=== PATIENT | female | born 1930 | race Caucasian/White ===

== ENCOUNTER → 2019-06-28 | Outpatient (REF) ==
--- NOTE | 2019-06-29 22:25 | NOCOX ---
DATE OF STUDY: 06/29/2019 OVERNIGHT OXIMETRY INTERPRETATION: Recording oximetry was done on room air. A total of 6 hours and 41 minutes of data was reviewed. Mean oxygen saturation for the study was 94% with a minimum recorded value of 70%. She spent 4.6% of the night with saturations less than or equal to 88%. The longest sustained time at that level was 1 minute and 44 seconds. There were significant fluctuations in the SpO2 waveform suggestive of sleep disordered breathing. IMPRESSION: 1. Acceptable nocturnal oxygenation. While greater than 5 minutes was spent total less than 88%, longest sustained time was 1 minute and 44 seconds. 2. Fluctuations in the SpO2 waveform suggestive of sleep disordered breathing. Clinical correlation will be necessary.
== END ==
LOC: SKLAB5 12:50
PROVIDERS: ATTEND Internal Medicine
DX: Z79.899 Other long term (current) drug therapy (principal)

== ENCOUNTER → 2019-07-06 | Outpatient (REF) | payer MEDICARE, OTHER, BC ==
[2019-07-06 10:33] LABS: HEMOGLOBIN 12.7 g/dl (12.0-15.5); MEAN CORPUSCULAR HEMOGLOBIN 29.1 pg (27.0-33.0); MEAN CORPUSCULAR HGB CONC 31.8 g/dl (32.0-36.5); MEAN CORPUSCULAR VOLUME 91.7 fl (80.0-96.0); PLATELET COUNT, AUTOMATED 241 10^3/uL (150-450); RED BLOOD COUNT 4.36 10^6/uL (4.00-5.40); WHITE BLOOD COUNT 5.7 10^3/uL (4.0-10.0)
[2019-07-06 10:44] LABS: INR 1.1; PROTHROMBIN TIME 13.9 SECONDS (11.8-14.0)
[2019-07-06 10:45] LABS: PARTIAL THROMBOPLASTIN TIME 28.4 SECONDS (25.0-38.4)
[2019-07-06 10:57] LABS: BLOOD UREA NITROGEN 19 MG/DL (7-18); CALCIUM LEVEL 8.7 MG/DL (8.8-10.2); CARBON DIOXIDE LEVEL 32 MEQ/L (21-32); CHLORIDE LEVEL 105 MEQ/L (98-107); CREATININE FOR GFR 0.78 MG/DL (0.55-1.30); GLOMERULAR FILTRATION RATE > 60.0 (>32); GLUCOSE, FASTING 133 MG/DL (70-100); POTASSIUM SERUM 4.2 MEQ/L (3.5-5.1); SODIUM LEVEL 140 MEQ/L (136-145)
== END ==
LOC: SKLAB5 09:56
PROVIDERS: ATTEND Internal Medicine
DX: I50.9 Heart failure, unspecified (principal); I11.0 Hypertensive heart disease with heart failure; I48.91 Unspecified atrial fibrillation